=== PATIENT | male | born 1980 | race Caucasian/White ===

== ENCOUNTER 2019-11-16 14:45 | Emergency (ER) | payer SELFPAY ==
[~2019-11-16] VITALS: Ht 185.4 cm; Wt 99.3 kg
[2019-11-16 15:18] VITALS: BP_SYST 132
--- NOTE | 2019-11-16 17:10 | NUR ---
CALLED FOR PT TO GO TO ROOM #7, UNABLE TO LOCATE PT AT THIS TIME.
--- NOTE | 2019-11-16 17:30 | NUR ---
CALLED FOR PT TO COME TO ROOM #7, UNABLE TO LOCATE PT.
--- NOTE | 2019-11-16 18:01 | NUR ---
PT IS [facility]BS
--- NOTE | 2019-11-16 18:01 | NUR ---
CALLED FOR RE-TRIAGE/ASSESSMENT, UNABLE TO LOCATE PT IN WAITING ROOM.
== END 2019-11-16 18:01 | disposition left against medical advice (07) ==
LOC: SED 14:45
DX: M54.9 Dorsalgia, unspecified (principal); Z53.21 Procedure and treatment not carried out due to patient leaving prior to being seen by health care provider